=== PATIENT | female | born 1935 | race Caucasian/White ===

== ENCOUNTER 2019-02-26 11:23 | Inpatient (IN) ==
[2019-02-26] MEDS ORDERED: NS 1,000 ML IV ONE ×2 (12:12→15:47)
[2019-02-26] MEDS ORDERED: ZOFRAN IV ONE (12:12)
--- NOTE | 2019-02-26 12:33 | Diag Imaging Result Doc PS360 ---
EXAM: CHEST-1 VIEW HISTORY: cough TECHNIQUE: Chest single view COMPARISON: CT from 12/21/2017 FINDINGS: There is a mass in the mid right lung. This was described on the CT from 12/21/2017. No cardiomegaly. No pulmonary edema. No pleural effusions identified. No pneumonia. IMPRESSION: Right lung mass. Electronically signed by Pieter Suresh 02/26/2019 12:30 PM
[2019-02-26 13:16] LABS: HEMATOCRIT 39.5 % (37.0-47.0); HEMOGLOBIN 12.7 g/dL (12.0-16.0); IMM GRAN# 0.02 X1000 (0.0-0.04); IMM GRAN% 0.2 % (0.0-0.5); LYMPH# 0.88 X1000 (1.2-3.4); LYMPH% 9.1 % (20.5-51.1); MCH 27.4 PG (27-31); MCHC 32.2 g/dL (33-37); MCV 85.3 FL (81-99); MONO# 0.56 X1000 (0.11-0.59); MONO% 5.8 % (1.7-9.3); MPV 10.7 FL (7.4-10.4); NEUT# 8.25 X1000 (1.4-6.5); NEUT% 84.9 % (42.2-75.2); PLT 191 X1000 (130-400); RBC 4.63 XMIL (4.2-5.4); RDW 14.5 % (11.5-14.5); WBC 9.71 X1000 (4.8-10.8)
[2019-02-26 13:26] LABS: INR 0.93; PROTIME 13.2 Seconds (11.0-16.0); PTT 23.6 Seconds (22.3-41.8)
[2019-02-26 14:44] LABS: URINE SOURCE CATH
[2019-02-26 14:50] LABS: BILIRUBIN URINE NEGATIVE (NEGATIVE); BLOOD URINE SMALL (NEGATIVE); COLOR YELLOW; GLUCOSE URINE NEGATIVE (NEGATIVE); KETONE URINE TRACE mg/dL (NEGATIVE); LEUKOCYTES URINE TRACE (NEGATIVE); NITRITE URINE NEGATIVE (NEGATIVE); PH URINE 5.5; PROTEIN URINE 30 mg/dL (NEGATIVE); SP GRAVITY URINE 1.014; TURBIDITY URINE HAZY (CLEAR); UROBILINOGEN URINE NORMAL (NORMAL)
[2019-02-26 14:51] LABS: UR EPITHELIAL CELLS <10 /HPF (<10); URINE BACTERIA 4+ /HPF; URINE WBC <10 /HPF (<10)
[2019-02-26 14:59] LABS: ALB/GLOB RATIO 1.5; ALBUMIN 4.1 g/dL (3.5-5.0); CREATININE 1.6 mg/dL (0.5-0.9); POTASSIUM 3.1 mmol/L (3.5-5.1); TOTAL BILIRUBIN 0.5 mg/dL (0.20-1.00); TOTAL PROTEIN 6.8 g/dL (6.3-8.3)
--- NOTE | 2019-02-26 15:32 | PROVIDER DOCUMENTATION ---
This chart was entered by Kasia Garrett Scribe, acting as scribe for Ad Calderon MD. HPI-Abdominal Pain/GI Problem - General Chief Complaint: GI Bleed Stated Complaint: GI bleed Time Seen by Provider: 02/26/19 11:50 Source: patient Allergies/Adverse Reactions: Patient Allergies Allergy/AdvReac Type Severity Reaction Status Date / Time tuberculin,PPD,multi-puncture AdvReac Unknown Verified 02/26/19 12:20 Home Medications: Home Medication List Medication Instructions Recorded Confirmed Last Taken Type ATORVAstatin [Lipitor] 20 mg PO DAILY 10/24/14 09/21/15 09/21/15 20:00 History Clopidogrel Bisulfate [Plavix] 75 mg PO DAILY 10/24/14 09/21/15 09/21/15 08:30 History LISINOpril [Prinivil] 40 mg PO DAILY 10/24/14 09/21/15 09/21/15 History Levothyroxine [Synthroid] 150 mcg PO DAILY 10/24/14 09/21/15 09/21/15 06:00 History Metoprolol Succinate 50 mg PO BID 10/24/14 09/21/15 09/21/15 History Nitroglycerin Sl [Nitroglycerin] 0.4 mg SL PRN PRN 10/27/14 09/21/15 Unknown History Famotidine [Pepcid] 20 mg PO BID 03/09/15 09/21/15 09/21/15 20:00 History Hydrocodone/APAP 5 mg/325 mg 1 each PO DIRECTED #30 tablet 05/19/15 09/21/15 Unknown Rx [[place]-5] Magnesium Hydroxide [Milk of 30 ml PO DIRECTED 09/21/15 09/21/15 09/18/15 20:30 History Magnesia] Polyethylene Glycol 3350 [Miralax] 17 gm PO DIRECTED 09/21/15 09/21/15 09/19/15 08:30 History Temazepam [Restoril] 15 mg PO QHS 09/21/15 09/21/15 09/21/15 20:30 History - History of Present Illness-ABD Nature of Presenting Problems: Patient is a 83 year old female who presents to the ED via EMS with generalized abdominal pain, nausea and vomiting. Patient states symptoms have been present for 8 days. Report having blood streaked emesis this morning. Denies blood in stool. Abdominal Pain Onset Location: reports: generalized abdomen Pain Radiation: reports: no radiation Quality of Pain: reports: cramping Severity in ED: reports: mild Onset/Duration: reports: other (8 days ago) Timing: reports: still present Activities at Onset: reports: light activity Associated Symptoms: reports: nausea, vomiting Emesis Description: reports: blood-streaked Bruising or Bleeding Gums?: No Similar Symptoms Previously?: Yes Recently seen or treated by another doctor?: No Review of Systems - Adult - REVIEW OF SYSTEMS - ADULT Constitutional: reports: no symptoms reported. denies: chills, fever, fatique Eyes: reports: no symptoms reported Ears, Nose, Mouth & Throat: reports: no symptoms reported Cardiovascular: reports: no symptoms reported Respiratory: reports: see HPI, cough. denies: shortness of breath, wheezing Gastrointestinal: reports: see HPI, abdominal pain (generalized), hematemesis (blood - streaked), nausea, vomiting. denies: diarrhea Genitourinary: reports: no symptoms reported Musculoskeletal: reports: no symptoms reported Integumentary: reports: no symptoms reported Neurological: reports: no symptoms reported. denies: dizziness/vertigo, seizure, syncope Psychiatric: reports: no symptoms reported Endocrine: reports: no symptoms reported Hematologic/Lymphatic: reports: no symptoms reported Allergic/Immunologic: reports: no symptoms reported All Other Systems: Reviewed and Negative Past History - Adult - PAST MEDICAL HISTORY-ADULT Review of Records: reports: Old Records Reviewed, Nursing Assessment Review, Medications Reviewed, Social history reviewed & non-contributory. Major Childhood Illnesses: reports: denies history Cardiovascular: reports: aortic disease (aneurysm--repaired), CAD, HTN, hyperlipidemia Respiratory: reports: COPD Gastrointestinal: reports: GERD Obstetrical/Gynecological: reports: denies history Genitourinary: reports: denies history Musculoskeletal: reports: denies history Neurological: reports: TIA Endocrine/Immune: reports: thyroid disorder Other Conditions: reports: cataract/glaucoma - PRIOR SURGERIES/PROCEDURES Surgical/Procedure History: reports: appendectomy, hysterectomy, joint replacement, other (aortic aneurysm repair, tumor removed from breast, cataract removal) - IMMUNIZATION STATUS Childhood Immunizations: See Nurse Assessment Flu Vaccine: See Nurse Assessment - FAMILY HISTORY Family History: reviewed, not pertinent - SOCIAL HISTORY Smoking: cigarettes (former) Substance Use: denies Living Situation: care facility (SNF) Physical Exam-General - PHYSICAL EXAM-ADULT Initial Vital Signs Reviewed: Yes - CONSTITUTIONAL General Appearance: alert, no apparent distress. negative: lethargic, slow to respond - HEAD, EARS, NOSE, MOUTH & THROAT HENMT: normocephalic/atraumatic, moist mucous membranes. negative: angioedema, hearing deficit - RESPIRATORY Respiratory: chest non-tender, lungs clear, normal breath sounds. negative: crackles, rhonchi, wheezing - CARDIOVASCULAR Cardiovascular: normal peripheral pulses, regular rate, rhythm. negative: tachycardia, systolic murmur - GASTROINTESTINAL (ABDOMEN) Abdominal Exam: normal bowel sounds, non tender, soft. negative: guarding, r ebound - GENITOURINARY Rectal Exam: normal exam. negative: blood streaked stool, mass, tenderness - MUSCULOSKELETAL Extremity: non-tender, normal inspection. negative: deformity, erythema - SKIN Integumentary: normal color, normal turgor, warm/dry. negative: cyanosis, ecchymosis, erythema, jaundice - NEUROLOGIC Neurologic: grossly normal. negative: aphasia, facial droop - PSYCHIATRIC Psych/Mental Status: normal mood/affect, oriented x 3. negative: anxious Progress - PLAN OF CARE/RESULTS Progress/Plan/Lab Results: Vital Signs - 8 hr 02/26/19 11:40 Temperature 99.0 F Pulse Rate 113 H Respiratory Rate 18 Blood Pressure 148/83 O2 Sat by Pulse Oximetry 92 L Orders Category Date Time Status CBC WITH ELECTRONIC DIFF [HEME] Stat Lab 02/26/19 11:50 Uncollected COMPREHENSIVE METABOLIC PANEL [CHEM] Stat Lab 02/26/19 11:50 Uncollected OCCULT BLOOD SCREENING [STOOL] Stat Lab 02/26/19 11:51 Uncollected PT [PROTIME WITH INR] [COAG] Stat Lab 02/26/19 11:50 Uncollected PTT [COAG] Stat Lab 02/26/19 11:50 Uncollected URINALYSIS [URINALYSIS] Stat Lab 02/26/19 11:50 Uncollected Result Diagrams: 02/26/19 13:00 02/26/19 14:22 - XRAY 1 XRAY Study: Chest Impression: See EMR Report ( EXAM: CHEST-1 VIEW HISTORY: cough TECHNIQUE: Chest single view COMPARISON: CT from 12/21/2017 FINDINGS: There is a mass in the mid right lung. This was described on the CT from 12/21/2017. No cardiomegaly. No pulmonary edema. No pleural effusions identified. No pneumonia. IMPRESSION: Right lung mass. Electronically signed by Pieter Suresh 02/26/2019 12:30 PM 02/26/19 1230 Interpreting Physician: Pieter Suresh MD Dictated Date/Time: 02/26/19 1229 cc: Ad Calderon MD; Dean Lozada MD) - CONSULTS/PCP/HOSPITALIST Notification #1 *Consult/PCP/Hospitalist*: EDI Miller for Hospitalist Time Discussed: 15:21 Reason/Comments: Dr. Calderon consulted with Angela about patient. Consult Disposition: other (Summer states patient is a Dr. Lozada patient.) #2 Consult: Dr. Lozada Time Discussed: 15:27 Reason/Comments: Dr. Calderon consulted with Dr. Lozada about patient. Consult Disposition: Admit Departure - Departure Date of Disposition Decision: 02/26/19 Time of Disposition Decision: 15:27 DIAGNOSIS: GI bleed, Hypercalcemia, Hypokalemia, Vomiting Disposition: ADMITTED INPATIENT 09 Certified Medical Emergency: Emergent Condition: Stable - Critical Care Note This patient required my direct & personal management of CC.: No Attestation - Physician/ LUCY Attestation Patient care was provided by Advanced Practice Provider:: No The physician spent face to face time with patient:: Yes Advanced Practice Provider documentation review:: Supervising physician onsite and consulted in the evaluation and care of this patient. The physician did have a face to face encounter with the patient. This chart was documented by the indicated scribe, (Kasia Garrett Scribe) and accurately reflects the services I performed and decisions made by me, Ad Calderon MD, as attested by the provider's signature.
[2019-02-26] MEDS ORDERED: ZOFRAN IV PRN (15:47)
[2019-02-26] MEDS ORDERED: PROTONIX IV SCH (16:00)
[2019-02-26] MEDS ORDERED: VANCOMYCIN IV PER PHARMACY MISC SCH (17:30)
[2019-02-26] MEDS ORDERED: SODIUM CHLORIDE 0.9% INJ SCH (17:30)
[2019-02-26] MEDS ORDERED: NITROGLYCERIN SL PRN (17:33)
[2019-02-26] MEDS ORDERED: DULCOLAX PR ONE (17:35)
[2019-02-26] MEDS ORDERED: MIRALAX PO PRN (17:45)
[2019-02-26] MEDS ORDERED: MILK OF MAGNESIA PO PRN (17:45)
[2019-02-26] MEDS ORDERED: VANCOMYCIN 1 GM/NS 1 GM/250 ML IVPB IV ONE (18:00)
[2019-02-26] MEDS: LEVAQUIN 500 MG/D5W 500 MG/100 ML IVPB IV SCH (18:18)
[2019-02-26] MEDS: SOLU-MEDROL IV SCH (18:18)
--- NOTE | 2019-02-26 20:27 | Diag Imaging Result Doc PS360 ---
ABDOMEN FLAT/UPRIGHT - 02/26/2019 INDICATION: pain COMPARISON: None FINDINGS: There are stents the aortic bifurcation. There is moderate diffuse constipation. No bowel obstruction or free air. There is a left femoral head prosthesis. There is a stabilization jhon in the right femoral neck. IMPRESSION: Diffuse constipation. Electronically signed by Carlos Light 02/26/2019 8:25 PM
[2019-02-26] MEDS: RESTORIL PO SCH (21:05)
[2019-02-26] MEDS: TOPROL XL PO SCH (21:06)
[2019-02-26] MEDS: SODIUM CHLORIDE 0.9% INJ SCH (22:32)
[2019-02-26] MEDS: PROTONIX IV SCH (22:32)
[2019-02-26] MEDS: DUONEB (A & A) INH SCH (22:39)
[2019-02-27] MEDS: SOLU-MEDROL IV SCH ×4 (02:55→18:40)
[2019-02-27] MEDS: DUONEB (A & A) INH SCH ×4 (03:16→23:06)
[2019-02-27] MEDS: SYNTHROID PO SCH (06:13)
[2019-02-27] MEDS: PROTONIX IV SCH ×2 (06:35→18:40)
[2019-02-27 06:51] LABS: HEMATOCRIT 36.5 % (37.0-47.0); HEMOGLOBIN 11.5 g/dL (12.0-16.0); LYMPH# 0.52 X1000 (1.2-3.4); LYMPH% 6.9 % (20.5-51.1); MCH 27.5 PG (27-31); MCHC 31.5 g/dL (33-37); MCV 87.3 FL (81-99); MONO# 0.19 X1000 (0.11-0.59); MONO% 2.5 % (1.7-9.3); MPV 10.4 FL (7.4-10.4); NEUT% 90.6 % (42.2-75.2); PLT 162 X1000 (130-400); RBC 4.18 XMIL (4.2-5.4); RDW 14.4 % (11.5-14.5); WBC 7.51 X1000 (4.8-10.8)
[2019-02-27 07:16] LABS: ALB/GLOB RATIO 1.3; ALBUMIN 3.7 g/dL (3.5-5.0); CREATININE 1.5 mg/dL (0.5-0.9); TOTAL BILIRUBIN 0.52 mg/dL (0.20-1.00); TOTAL PROTEIN 6.5 g/dL (6.3-8.3)
[2019-02-27 07:17] LABS: LYMPHS 8 % (21-51); MONO 1 % (1-9); SEGS 91 % (42-75)
--- NOTE | 2019-02-27 07:50 | Diag Imaging Result Doc PS360 ---
CT HEAD W/O CONTRAST - 02/27/2019 INDICATION: headache COMPARISON: 09/21/2015 FINDINGS: There is moderate patient motion artifact. There is advanced diffuse cerebral atrophy. There is advanced periventricular white matter chronic microvascular disease. No significant change since prior. The skull is intact. There is an air-fluid level in the left maxillary sinus compatible with sinusitis. IMPRESSION: 1. Left maxillary sinusitis. 2. Stable chronic changes to the brain. This exam was performed using automated exposure control, adjustment of mA or kV according to patient size, and/or use of iterative reconstruction technique Electronically signed by Carlos Light 02/27/2019 7:47 AM
--- NOTE | 2019-02-27 07:53 | Diag Imaging Result Doc PS360 ---
CT ABDOMEN/PELVIS W/O CONTRAST - 02/27/2019 INDICATION: lung mass COMPARISON: 12/21/2017, 05/15/2015 FINDINGS: Lung mass is not visible on this abdomen pelvis CT. The visualized lung bases demonstrate advanced COPD. There is also mucus plugging of segmental airways in the lung bases, scattered infiltrates in both lower lobes, and bilateral dependent atelectasis. There has been significant decrease in size of the abdominal aortic aneurysm sac. This measures 4.2 x 4.8 cm in AP and lateral dimensions. Stable internal stent. There is significant rectal stool impaction. Urinary bladder is normal. There is significant diverticulosis throughout the colon. Stable left femoral head prosthesis and right femoral neck stabilization jhon. There are moderate degenerative changes of the spine. No acute or suspicious bony lesion. IMPRESSION: Constipation with rectal stool impaction. Mucous plugging with scattered infiltrates/bronchopneumonia in the lower lobes. Severe COPD. This exam was performed using automated exposure control, adjustment of mA or kV according to patient size, and/or use of iterative reconstruction technique Electronically signed by Carlos Light 02/27/2019 7:51 AM
[2019-02-27 07:55] LABS: CALCIUM 12.8 mg/dL (8.8-10.2)
[2019-02-27] MEDS: D5 NS + KCL 20 MEQ 1,000 ML IV SCH ×3 (08:25→21:28)
[2019-02-27] MEDS: TOPROL XL PO SCH ×2 (08:25→21:02)
[2019-02-27] MEDS: PRINIVIL PO SCH (08:26)
[2019-02-27] MEDS ORDERED: GLYCERIN ADULT PR ONE (12:15)
[2019-02-27] MEDS ORDERED: ZOMETA 4 MG in NS 100 ML IV ONE (12:15)
[2019-02-27] MEDS ORDERED: GOLYTELY PO ONE (13:00)
--- NOTE | 2019-02-27 14:39 | Diag Imaging Result Doc PS360 ---
CT THORAX W/O CONTRAST - 02/27/2019 INDICATION: Eval lung mass COMPARISON: 12/21/2017 FINDINGS: There has been significant increase in size of the suspicious right upper lobe pulmonary mass. This is at the posterior surface contacting the posterior pleura. There is severe right hilar, paratracheal, and anterior mediastinal lymphadenopathy. There is clustered nodularity at the anterior segment of the right upper lobe, likely tumor spread here as well. Small indeterminate effusion and slight atelectasis in the left lung base. There is dense vascular disease of the aorta, great vessels, and coronary arteries. Heart size is borderline. Bony structures are intact. IMPRESSION: Advanced primary lung cancer. This exam was performed using automated exposure control, adjustment of mA or kV according to patient size, and/or use of iterative reconstruction technique Electronically signed by Carlos Light 02/27/2019 2:37 PM
[2019-02-27] MEDS: LEVAQUIN 500 MG/D5W 500 MG/100 ML IVPB IV SCH (17:50)
[2019-02-27] MEDS ORDERED: KLOR-CON PO ONE (17:53)
[2019-02-27] MEDS: SODIUM CHLORIDE 0.9% INJ SCH (18:40)
--- NOTE | 2019-02-27 20:12 | HISTORY AND PHYSICAL ---
CHIEF COMPLAINT: Hematemesis. HISTORY OF PRESENT ILLNESS: Ms. Lucio is an 83-year-old white female patient, not doing well last 10 days. Patient claims she was sick with chest congestion, cough, expectoration, sinus drainage, feverish feeling, weakness. Patient had episode of hemoptysis one time 2 days ago. Patient was getting treatment for pneumonia at the [facility]. Patient claims she was not getting any better. Patient had 3 episodes of coffee-ground emesis. They checked for Hemoccult and it was positive. Her oral intake was poor. Patient had unquantified weight loss. Patient was also constipated. Because of her overall health declining, poor oral intake, she was not responding to outpatient treatment, we decided to send patient to ER for further evaluation. Patient does have multiple complex medical issues, including hypertension, hypothyroidism, coronary artery disease, paroxysmal atrial fibrillation, history of subdural hematoma, a lung mass presumed to be a malignancy but no tissue diagnosis done at patient's request. Patient also has a history of dysphagia. Lately her overall health is declining. Patient does have vague chest pain at times, palpitation, vague abdominal pain, at times dysuria, polyuria, urge urinary incontinence. According to son, patient did not bowel movement over 7-10 days. No bleeding per rectum. At times, pain in the leg. No heat or cold intolerance. At times, symptoms suggestive of rhinitis. Patient does have problem with recent memory. No further history available at this time. ALLERGIES: Tuberculin PPD. PAST MEDICAL HISTORY: Hypertension, hyperlipidemia, hypothyroidism, COPD, lung mass, peripheral arterial disease, macular degeneration (patient has poor vision, left eye, under care of certified low vision therapist), gastritis and reflux disease (I offered her GI evaluation multiple times, but patient is declining), history of subdural hematoma, aortic aneurysm status post repair, basal cell skin cancer. PAST SURGICAL HISTORY: Patient had cataract surgery, appendectomy, hysterectomy, bilateral total hip replacement, lumpectomy from the left breast and it was benign. SOCIAL HISTORY: Single. Former smoker. She smoked for more than 50 years, quit around 20 years ago. Denied alcohol or substance abuse. Patient lately staying in the [facility], needs assistance in activities of daily living. FAMILY HISTORY: Significant for coronary artery disease. One of her sons has Parkinson disease. REVIEW OF SYSTEMS: As per HPI. Otherwise unobtainable. HOME MEDICATION: Includes lisinopril, Lipitor, Plavix, Pepcid, [place], Synthroid, milk of magnesia, beta marlene, nitroglycerine sublingually, MiraLAX, Restoril. PHYSICAL EXAMINATION: GENERAL: Elderly white female patient in mild distress. VITAL SIGNS: In the emergency room, blood pressure 147/82, pulse 76, respirations 16, temperature 98.3. SKIN: Senile turgor. NECK: Supple. No JVD, thyromegaly, or lymphadenopathy. HEENT: Head: Atraumatic, normocephalic. Pupils reacting to light. Ear and Nose: Benign. No pharyngeal congestion. LUNGS: Bibasilar crepitation. Occasional wheezing. CARDIOVASCULAR: S1 and S2 heard. No gallop or thrill. A 2/6 systolic murmur at the apex. ABDOMEN: Soft, scaphoid. Bowel sounds present. Mild epigastric tenderness. EXTREMITIES: No cyanosis, clubbing. Some disuse atrophy of the lower limbs. CENTRAL NERVOUS SYSTEM: Alert, awake. Answering questions fair. Patient does have problem with recent memory. DIAGNOSTIC STUDIES: Her admission lab data revealed WBC count of 9.71, hemoglobin 12.7, hematocrit 39.5, platelet count 191. PT/INR 0.93, PTT 23.6. Potassium 3.1, calcium was 14. I did check her intake PTH which was low. Urine analysis did reveal 4+ bacteria, 10-20 RBCs, less than 10 WBCs. Chest x-ray revealed right lung mass. Abdominal x-ray revealed constipation. ASSESSMENT AND PLAN: Patient presented with: 1. Coffee-ground emesis, most likely due to upper gastrointestinal bleed. Patient had problem with dysphagia at times, weight loss. We recommended her to have upper and lower gastrointestinal endoscopies many months ago, but patient was declining. I will admit patient. Hydration. Gastroenterology consult. IV Protonix. Patient and son in agreement. 2. Chronic obstructive pulmonary disease exacerbation. Patient does have chronic cough, chest congestion not responding to outpatient treatment. 3. Lung mass. Aware. Patient does not want any intervention. I had lengthy discussions with patient and son multiple times in the past. Patient wanted only comfort care. 4. Hypercalcemia. I checked intake PTH which was normal , It is more suggestive of possibility of hypercalcemia of malignancy. I am going to get an oncologic consult for further management. I will have limitation giving her hydration and Lasix. 5. Hypertension. 6. Hypothyroidism. On Synthroid. 7. Weight loss. Overall plan discussed with the patient at length, and she is in agreement. Her son was present. cc: Dean Lozada MD MTDD
[2019-02-27] MEDS: RESTORIL PO SCH (21:02)
[2019-02-28] MEDS: SOLU-MEDROL IV SCH ×3 (02:25→17:54)
[2019-02-28] MEDS: DUONEB (A & A) INH SCH ×4 (03:27→21:37)
[2019-02-28] MEDS ORDERED: LASIX IV ONE (06:35)
[2019-02-28 06:58] LABS: AGAP 8; ALB/GLOB RATIO 1.3; ALBUMIN 3.4 g/dL (3.5-5.0); ALKALINE PHOSPHATASE 42 U/L (32-104); BUN 40 mg/dL (8-22); CHLORIDE 109 mmol/L (98-107); COSMO 303; CREATININE 1.2 mg/dL (0.5-0.9); ESTIMATED GFR 43; GLUCOSE 140 mg/dL (70-104); GOT 12 U/L (10-30); GPT < 5 U/L (10-36); SODIUM 146 mmol/L (136-145); TCO2 29 mmol/L (25-35); TOTAL BILIRUBIN 0.53 mg/dL (0.20-1.00); TOTAL PROTEIN 6.1 g/dL (6.3-8.3)
[2019-02-28 07:26] LABS: POTASSIUM 2.5 mmol/L (3.5-5.1)
[2019-02-28] MEDS: D5 NS + KCL 20 MEQ 1,000 ML IV SCH ×2 (07:26→09:05)
[2019-02-28] MEDS: PROTONIX IV SCH ×2 (07:27→17:54)
--- NOTE | 2019-02-28 07:29 | Diag Imaging Result Doc PS360 ---
CHEST-PORTABLE - 02/28/2019 INDICATION: sob COMPARISON: 02/26/2019 FINDINGS: Stable right upper lobe lung mass and right hilar adenopathy. No new infiltrates. IMPRESSION: No change from prior. Electronically signed by Carlos Light 02/28/2019 7:27 AM
[2019-02-28] MEDS: SYNTHROID PO SCH (07:30)
[2019-02-28] MEDS ORDERED: KLOR-CON PO ONE ×2 (07:47→20:15)
[2019-02-28] MEDS: KLOR-CON PO SCH ×2 (08:59→11:56)
[2019-02-28] MEDS: PRINIVIL PO SCH (09:00)
[2019-02-28] MEDS: TOPROL XL PO SCH ×2 (09:00→20:31)
[2019-02-28] MEDS: LACTULOSE PO SCH (09:05)
[2019-02-28] MEDS: POTASSIUM CHLORIDE 20 MEQ/SWI 20 MEQ/100 ML IVPB IV SCH ×2 (09:05→11:56)
[2019-02-28] MEDS ORDERED: VANCOMYCIN 1 GM/NS 1 GM/250 ML IVPB IV SCH (10:00)
--- NOTE | 2019-02-28 13:23 | PROGRESS NOTE ---
DATE: 02/28/2019 SUBJECTIVE: Ms. Lucio is doing fair and complaining of cough. No hemoptysis. No high-grade fever or chills. Oral intake is fair. No hematemesis or melena. The patient claims to have one bowel movement. She refused to drink GoLYTELY. Her pain seems to be under control. No typical chest pain. Patient admitted with possible upper GI bleed. PAST MEDICAL HISTORY: As noted. OBJECTIVE: Vital signs: Reviewed. Neck: Supple. No JVD. Lungs: Bibasilar crepitations and occasional wheezing. CVS: S1 and S2 heard. 2/6 systolic murmur at the apex. Abdomen: Soft. No distention. Bowel sounds present. Extremities: No cyanosis or clubbing. No acute DVT. DIPLOMA MAKER: Alert, awake and able to move all 4 limbs. CONSIDERATION: Patient's problems includes upper GI bleed that could be due to gastritis. Hemoglobin yesterday was 11.5, hematocrit 36.5, and WBC count 7.51. Clinical Data Assistant following patient with us. The patient does have hypercalcemia. Intact PTH normal, most likely related to malignancy. The patient did receive 1 dose of Zometa. I also gave her IV hydration and 1 dose of IV Lasix. The patient does have lung mass with possible metastasis. The patient does not want any intervention as far as lung mass is concerned. The patient also had a thyroid nodule. She refused workup in the past. Other problems includes pneumonia, osteoarthritis, constipation, gastritis and reflux disease. COPD. Overall plan discussed with the patient, and she is in agreement. cc: Dean Lozada MD
--- NOTE | 2019-02-28 14:44 | Diag Imaging Result Doc PS360 ---
BONE SCAN, TOTAL BODY - 02/27/2019 INDICATION: Hypercalcemia, eval TECHNIQUE: 29.6 mCi of MDP was administered COMPARISON: None FINDINGS: There are no suspicious areas of uptake throughout the skeleton. There are bilateral prosthetic hips. Soft tissue uptake is normal. IMPRESSION: No acute disease. Electronically signed by Carlos Light 02/28/2019 2:42 PM
[2019-02-28] MEDS: SODIUM CHLORIDE 0.9% INJ SCH (17:54)
[2019-02-28] MEDS: LEVAQUIN 500 MG/D5W 500 MG/100 ML IVPB IV SCH (17:54)
[2019-02-28] MEDS: RESTORIL PO SCH (20:31)
[2019-03-01] MEDS: SOLU-MEDROL IV SCH ×2 (02:24→16:09)
[2019-03-01] MEDS: DUONEB (A & A) INH SCH ×4 (03:00→21:58)
[2019-03-01] MEDS: PROTONIX IV SCH ×2 (07:00→18:49)
[2019-03-01 07:43] LABS: HEMATOCRIT 34.1 % (37.0-47.0); HEMOGLOBIN 10.7 g/dL (12.0-16.0); IMM GRAN# 0.04 X1000 (0.0-0.04); IMM GRAN% 0.4 % (0.0-0.5); LYMPH# 0.61 X1000 (1.2-3.4); LYMPH% 5.8 % (20.5-51.1); MCH 27.4 PG (27-31); MCHC 31.4 g/dL (33-37); MCV 87.4 FL (81-99); MONO# 0.44 X1000 (0.11-0.59); MONO% 4.2 % (1.7-9.3); MPV 10.9 FL (7.4-10.4); NEUT# 9.34 X1000 (1.4-6.5); NEUT% 89.6 % (42.2-75.2); PLT 145 X1000 (130-400); RDW 14.6 % (11.5-14.5); WBC 10.43 X1000 (4.8-10.8)
[2019-03-01 07:48] LABS: AGAP 9; ALB/GLOB RATIO 1.1; ALBUMIN 3.3 g/dL (3.5-5.0); ALKALINE PHOSPHATASE 45 U/L (32-104); BUN 41 mg/dL (8-22); CALCIUM 11.4 mg/dL (8.8-10.2); CHLORIDE 108 mmol/L (98-107); COSMO 302; CREATININE 1.4 mg/dL (0.5-0.9); ESTIMATED GFR 36; GLUCOSE 129 mg/dL (70-104); GOT 10 U/L (10-30); GPT < 5 U/L (10-36); MAGNESIUM 1.6 mg/dL (1.5-2.7); SODIUM 146 mmol/L (136-145); TCO2 29 mmol/L (25-35); TOTAL BILIRUBIN 0.27 mg/dL (0.20-1.00); TOTAL PROTEIN 6.2 g/dL (6.3-8.3)
[2019-03-01] MEDS: LACTULOSE PO SCH (08:47)
[2019-03-01] MEDS: TOPROL XL PO SCH ×2 (08:48→20:50)
--- NOTE | 2019-03-01 08:49 | PROGRESS NOTE ---
DATE: 03/01/2019 SUBJECTIVE: Ms. Lucio is doing fair. No high-grade fever or chills. Denied any chest pain or palpitation. Mild generalized pain. Nausea and vomiting improved. Her pain seems to be under control. We had problem with her potassium yesterday; I supplemented potassium. History part is limited. OBJECTIVE: Vital Signs: Noted. Neck: Supple. No JVD. Lungs: Bilateral good air entry present. Few basal crepitations. Cardiovascular: S1 and S2 heard. Abdomen: Soft, scaphoid. Bowel sounds present. Mild diffuse tenderness. No guarding or rigidity. Extremities: No cyanosis, clubbing. No acute DVT. CRISIS COUNSELOR: Alert, awake. Able to move all 4 limbs. Bone scan result reviewed. We did serum protein electrophoresis, it was negative for monoclonal band. IMPRESSION: 1. The patient's problems includes GI bleed. Last hemoglobin was 11.5 I am going to recheck her Hemoglobin and Hematocrit today. Computer Science Instructor following patient with us. 2. Significant constipation, hypercalcemia most likely due to malignancy. Oncologist following patient with us. Lung mass presumed to be malignancy. 3. Paroxysmal atrial fibrillation. 4. Osteoarthritis. PLAN: Overall patient is doing fair. Her chest x-ray done yesterday reviewed. I am going to continue current treatment, decrease her steroid. If clinical condition permits, we will plan discharging patient [facility] tomorrow. cc: Dean Lozada MD
[2019-03-01] MEDS: LOVENOX SUBQ SCH (08:50)
[2019-03-01] MEDS: SYNTHROID PO SCH (08:50)
[2019-03-01] MEDS: PRINIVIL PO SCH (08:52)
[2019-03-01] MEDS ORDERED: KLOR-CON PO SCH (09:00)
--- NOTE | 2019-03-01 10:56 | PROGRESS NOTE ---
DATE: 02/27/2019 SUBJECTIVE: Ms. Lucio is feeling some better. She does have cough. No nausea or vomiting. No high-grade fever or chills. Denied any chest pain or palpitation. The patient does have constipation. Patient admitted with symptoms suggestive of acute bronchitis, COPD exacerbation, not responding to outpatient treatment. The patient also found to have hypercalcemia, COPD exacerbation, upper GI bleed, weight loss, constipation. OBJECTIVE: Vital Signs: Her vital signs noted. HEENT: No pharyngeal congestion. Ears and nose benign. Patient had significant visual impairment, left eye. Neck: Supple. Possible thyroid enlargement. Lungs: Bibasilar crepitations, occasional wheezing. CVS: S1 and S2 heard. Abdomen: Soft, globular. Mild epigastric tenderness. No guarding or rigidity. Extremities: No cyanosis, clubbing. No acute DVT. RFID TECHNICIAN: Alert, awake. Able to move all 4 limbs. CONSIDERATION: 1. Upper gastrointestinal bleed. Gristmill Operator is going to evaluate the patient. 2. Acute bronchitis, chronic obstructive pulmonary disease exacerbation not responding to outpatient treatment. The patient is on steroid, bronchodilator treatment, intravenous antibiotics. 3. Hypothyroidism. Patient had abnormal thyroid nodule. I offered her workup in the past, but patient declined. 4. History of coronary artery disease, paroxysmal atrial fibrillation. 5. Chronic pain due to osteoarthritis. 6. Gastritis and reflux disease. I am going to get CT scan of the chest, abdomen, pelvis and the head for further evaluation. We will continue hydration. Gastroenterology consult. After reviewing the results, will make necessary recommendations. cc: Dean Lozada MD
[2019-03-01] MEDS: MORPHINE IV PRN (12:19)
[2019-03-01] MEDS: LEVAQUIN 500 MG/D5W 500 MG/100 ML IVPB IV SCH (18:49)
[2019-03-01] MEDS: SODIUM CHLORIDE 0.9% INJ SCH (18:49)
[2019-03-01] MEDS: RESTORIL PO SCH (20:50)
[2019-03-02] MEDS: SOLU-MEDROL IV SCH (01:21)
[2019-03-02] MEDS: DUONEB (A & A) INH SCH ×2 (03:39→11:24)
[2019-03-02] MEDS: PROTONIX IV SCH (06:08)
[2019-03-02] MEDS: SYNTHROID PO SCH (06:09)
[2019-03-02] MEDS: LOVENOX SUBQ SCH (06:09)
--- NOTE | 2019-03-02 07:44 | GASTROENTEROLOGY CONSULTATION ---
DATE: 02/27/2019 REASON FOR CONSULTATION: Abdominal pain, nausea, vomiting, questionable hematemesis. HISTORY OF PRESENT ILLNESS: This is an 83-year-old female who was admitted on 02/26/2019. Patient has been residing at [facility]. She reports abdominal pain, nausea and vomiting. She has had problems for approximately seven to eight days. There were reports of possible hematemesis but no evidence of blood in the stool. There was no reported diarrhea but patient states she does have problems with constipation. She states at [facility] they give her laxatives only when needed. Abdominal and pelvis CT scan had showed constipation with rectal stool impaction. Also noted mucosal plugging with scattered infiltrates in the lower lobes with severe COPD. Abdominal x-ray showed diffuse constipation. She has stents at the aortic bifurcation. Moderate diffuse constipation with no bowel obstruction. PAST MEDICAL HISTORY: Coronary artery disease, hypertension, hyperlipidemia, history of aortic disease with aneurysm repair, COPD, GERD, history of glaucoma/cataracts, hypothyroidism, history of TIA. PAST SURGICAL HISTORY: Appendectomy, hysterectomy, joint replacement, aortic aneurysm repair, tumor from breast removed, cataract surgery. ALLERGIES: Tuberculin PPD, unknown reaction. HOME MEDICATIONS: Lipitor 20 mg daily, Plavix 75 mg daily, Pepcid 20 mg twice a day, Isabella 5 one as directed, Synthroid 150 mg daily, Prinivil 40 mg daily, Milk of Magnesia as directed or as needed, metoprolol 50 mg twice a day, nitroglycerin 0.4 mg sublingual as needed, MiraLAX 17 grams as needed, temazepam 15 mg every night. SOCIAL HISTORY: She resides at [facility]. Former smoker. Denies alcohol use. REVIEW OF SYSTEMS: Per history of present illness. PHYSICAL EXAMINATION: Vital Signs: Temperature 97.9, pulse 81, respirations 15, blood pressure 199/92. General: The patient was wake. She was being cleaned up at the time of my evaluation. She had a small amount of brown stool. Nurse was cleaning her up. No evidence of rectal bleeding or melena. Respiratory: Lung sounds essentially clear. Cardiovascular: Regular rate and rhythm. Abdomen: Soft. Positive bowel sounds. Nontender. Extremities: No lower extremity edema noted. Neurologically, patient was awake and alert. DIAGNOSTIC RESULTS: Laboratory. WBC 17.51, hemoglobin 11.5, hematocrit 36.5, MCV 87.3, platelets 162. Coagulation. Pro-time 13.2, INR 0.93, PTT 23.6. Chemistry. Sodium 143, potassium 3.0, chloride 103, CO2 27, BUN 51, creatinine 1.5, glucose 104, calcium 12.8, magnesium 1.9, total bilirubin 0.52, AST 13, ALT 5, alkaline phosphatase 47. ASSESSMENT AND PLAN: 1. Questionable hematemesis. 2. CT scan showing stool impaction. Patient has had a Dulcolax. We will give a glycerin suppository and try 1 liter of GoLyte to clean her out and then start lactulose daily. Will continue to follow during her hospital course and further plans will be made according to her progress. Hemoglobin and hematocrit are stable. Will continue to monitor. Further plans will be made as needed. I have discussed this case with Dr. Chau. Dictated by EDI Trevino for Jas Chau MD cc: EDI Watson MD Bharat K. Vakharia, MD
[2019-03-02] MEDS: TOPROL XL PO SCH (08:37)
[2019-03-02] MEDS: LACTULOSE PO SCH (08:37)
[2019-03-02] MEDS: PRINIVIL PO SCH (08:37)
[2019-03-02] MEDS: MORPHINE IV PRN (08:44)
--- NOTE | 2019-03-02 09:19 | HEMO/ONC CONSULTATION ---
DATE: 02/27/2019 REQUESTING PHYSICIAN: Dr. Dean Lozada. REASON FOR CONSULTATION: Hypercalcemia. HISTORY OF PRESENT ILLNESS: Ms Lucio is a pleasant 83-year-old female with multiple comorbidities, who presented to [facility] yesterday with complaints of abdominal pain, nausea, vomiting, and hemoptysis. Per documentation and her son's report, who is at bedside, she had been complaining of abdominal pain, nausea and vomiting for at least 7 to 8 days. She had constipation with no bowel movement as well over the past week. She began having hemoptysis yesterday morning. She ultimately presented to the emergency room for further evaluation. Abdominal x-ray performed in the ER revealed diffuse constipation. CT of the abdomen and pelvis revealed constipation with impaction as well as scattered infiltrates/bronchopneumonia in the lower lobes. Additionally noted on admission, she had significant hypercalcemia with a calcium level of 14.0. She was admitted for further evaluation and workup. We have been asked to evaluate. Please note, patient is a poor historian. Past medical history is primarily obtained from ER documentation and the son who is at bedside. PAST MEDICAL HISTORY: 1. TIA. 2. Cataracts. 3. Glaucoma. 4. Thyroid disorder. 5. Hypertension. 6. Hyperlipidemia. 7. GERD. 8. Brain bleed. 9. CAD. 10. COPD. PAST SURGICAL HISTORY: 1. AAA repair. 2. Hysterectomy. 3. Femur fracture. 4. Cardiac surgery. 5. Appendectomy. 6. Joint replacement. 7. Tumor removal from breast. 8. Cataract removal. SOCIAL HISTORY: She currently resides in a rehab facility. She is accompanied today by a supportive son. She is a former smoker. Denies any alcohol or illicit drug use. FAMILY HISTORY: No known bleeding or clotting disorders, malignancies. ALLERGIES: No known drug allergies. REVIEW OF SYSTEMS: Twelve point review of systems reviewed and negative except as mentioned above in HPI. HOME MEDICATIONS: 1. Metoprolol succinate 50 mg p.o. b.i.d. 2. Lisinopril 40 mg p.o. daily. 3. Lipitor 20 mg p.o. daily. 4. Levothyroxine 150 mcg p.o. daily. 5. Clopidogrel [*] mg p.o. daily. 6. Nitroglycerin 0.4 mg sublingual p.r.n. 7. [*]20 mg p.o. b.i.d. 8. [place] 5 one tablet as needed. 9. Polyethylene glycol 17 g p.o. daily. 10. Milk of magnesia 30 mg p.o. as directed. 11. Temazepam 50 mg p.o. at bedtime. Note home medications have not yet been confirmed. PHYSICAL EXAMINATION: Vital Signs: Temperature 97.9 degrees, respirations 15, pulse 100, blood pressure 177/92, O2 saturation 97% on room air. General: This is a chronically ill-appearing female lying in bed, in no apparent distress. She is accompanied by her son. HEENT: Eyes, pupils equal, round. Mouth: Oral mucosa pink and dry. Neck: Supple. Trachea midline. Cardiovascular: Regular rate and rhythm. S1, S2. Pulmonary: Lung sounds clear throughout auscultation bilaterally, nonlabored. Gastrointestinal: Abdomen soft, nontender, nondistended. Bowel sounds are present in all 4 quadrants. Musculoskeletal: No bony abnormality. Skin: No petechia, ecchymosis, or rash. Thin and dry. Neurologic: The patient is awake and alert, minimally responsive when asked questions. She is having periods of confusion per her son. LABORATORY DATA: White blood cell count 7.51, hemoglobin 11.5, hematocrit 36.5, platelet 162,000. Sodium 142, potassium 3.0, chloride 103, CO2 27, BUN 51, creatinine 1.5, glucose 104, calcium 12.8. Noted calcium was 14.0 upon admission. PTH low at 12. IMAGIN. Chest x-ray from 02/26/2019. Impression: Right lung mass. 2. Abdominal x-ray 02/26/2019. Impression: Diffuse constipation. 3. Abdomen/pelvis CT 02/27/2018. Impression: Constipation with rectal stool impaction, mucous plugging with scattered infiltrate/bronchopneumonia in the lower lobes, severe COPD. 4. Head CT. Impression: Left maxillary sinusitis. Stable chronic changes of the brain. That was dated 02/27/2018. ASSESSMENT AND PLAN: 1. Right lung mass per chest x-ray 02/26/2019. Noted that this was there on CT dated 12/21/2017. We will obtain records for review. We will plan to repeat dedicated CT of the chest without contrast to further evaluate. 2. Hypercalcemia, questionable etiology, possibly from malignancy. Calcium level 14.0 upon admission, now down to 12.8. We will give Zometa 4 mg IV x1 dose. Check SPEP and whole-body bone scan. If the SPEP is positive, then we will plan to check dedicated skeletal survey to further evaluate. We will check CMP daily. 3. Constipation with impaction per CT abdomen and pelvis. Continue bowel regimen per primary care. 4. Abdominal pain/nausea, vomiting, likely secondary to constipation with impaction. This is resolved at present. Continue analgesics as well as antiemetics as needed. Supportive care. 5. Scattered infiltrates/bronchopneumonia in bilateral lower lobes. She is currently on broad- spectrum antibiotics per primary care. Continue present management. 6. Hemoptysis, possibly secondary to suspected pneumonia. The son reports that she did not have any overt hematemesis, it was rather hemoptysis. No further complaints. Hemoglobin is decreased but stable today at 11.5, likely dilutional as hemoglobin was 12.7 upon admission. Continue present management per primary care. The above findings represent the assessment and plan of Dr. Evan Cochran. Thank you for allowing us to participate in the care of this patient. We will follow closely. Dictated by EDI Ferreira for Evan Cochran MD cc: EDI Ferreira MD Bharat K. Vakharia, MD
--- NOTE | 2019-03-02 09:22 | DISCHARGE SUMMARY ---
ADMISSION DATE: 02/26/2019 DISCHARGE DATE: DISCHARGE DIAGNOSES: 1. Upper gastrointestinal bleed, most likely due to gastritis. 2. Enlarging lung mass, presumed to be malignancy. 3. Hypercalcemia, most likely due to malignancy. 4. Constipation. 5. Paroxysmal atrial fibrillation. 6. Chronic pain. 7. Osteoarthritis. 8. Chronic obstructive pulmonary disease. 9. Peripheral arterial disease. 10. Macular degeneration. 11. History of subdural hematoma. 12. Aortic aneurysm. 13. Basal cell skin cancer. 14. History of bilateral hip replacement. 15. History of breast biopsy in the past, which was benign. 16. Hypothyroidism. 17. Hyperlipidemia. HISTORY OF PRESENT ILLNESS: Ms. Lucio is an 83-year-old white female patient, admitted with coffee-ground emesis, which was Hemoccult-positive. The patient was evaluated in the ER. The patient also had vague abdominal pain, at times dysphagia. The patient was evaluated in the ER, admitted for further care. Her oral intake was poor. The patient had unquantified weight loss. GI consult obtained. I also did Oncology consult. The patient was treated conservatively with IV Protonix, IV fluids, symptomatic care, pain management. Oncologist recommended hospice. [facility] evaluated the patient. Dr. Chau evaluated the patient. They want to treat the patient conservatively, then to do the endoscopy. Her hypercalcemia was treated accordingly. Calcium level improved to 11.4. Renal function also improved. The patient is doing fairly well. I had multiple time discussion with the patient and son. The patient does have advanced lung mass. We decided to treat the patient conservatively. We thought the [facility] will [facility] at the [facility]. The patient did not want any aggressive intervention, and we decided to treat the patient at the [facility] with comfort care. OBJECTIVE: Vital Signs: Noted. Neck: Supple. No JVD. Lungs: A few basilar crepitations. Heart: S1 and S2 heard. Abdomen: Soft, scaphoid. Bowel sounds present. EVIDENCE SPECIALIST: Alert, awake. Able to move all 4 limbs. IMAGING AND LABORATORY DATA: The patient's lab data revealed hemoglobin 10.7, hematocrit 34.1, WBC count 10.43, platelets 145,000. Sodium 146, potassium 5, BUN 41, creatinine 1.4. Her calcium was 14, came down to 11.4. Serum protein electrophoresis was negative for multiple myeloma. Intact PTH level was 12. Urinalysis did reveal 4+ bacteria, suggestive of UTI. Urine culture not done. Stool for occult blood was negative. The patient had CT scan of the chest done, which did reveal advance primary lung cancer. Bone scan: No acute disease. CT of the abdomen and pelvis: Constipation with rectal stool impaction, mucous plugging, with scattered infiltrates, bronchopneumonia in the lower lobes, and severe COPD. Overall discharge condition satisfactory. I had a lengthy discussion with the son about poor prognosis. Son and patient in agreement. We are going to consider hospice down the road. Son wants her to have some physical therapy. I am going to continue prednisone in tapering dose, Augmentin, supportive care. Discharge orders as per separate sheet. cc: Dean Lozada MD
[2019-03-02 11:38] VITALS: BP 123/69
--- NOTE | 2019-03-02 20:03 | GASTROENTEROLOGY PROGRESS NOTE ---
DATE: 03/02/2019 SUBJECTIVE: Patient is awake and alert. She was receiving a breathing treatment. Her son is at the bedside. There has been no evidence of active bleeding. I think per son's report she may be discharged today. OBJECTIVE: Vital Signs: Temperature 98.1, pulse 99, respirations 20, blood pressure 123/69. General: Patient is awake. Her son is at the bedside. LABORATORY: Hematology: WBC 10.43, hemoglobin 10.7, hematocrit 34.1, MCV 87.4, platelet 145,000. Chemistry: Sodium 146, potassium 5.0, chloride 108, CO2 29, BUN 41, creatinine 1.4, glucose 129, calcium 11.4, magnesium 1.6, total bilirubin 0.27, AST 10, ALT 5, alkaline phosphatase 45. ASSESSMENT AND PLAN: 1. Recent gastrointestinal bleed. Hemoglobin and hematocrit have been stable and there is no evidence of active bleeding. 2. Constipation, impaction. Patient has received laxatives. 3. Lung mass, following with Oncology. 4. There has been no further evidence of active GI bleeding. Hemoglobin and hematocrit stable. 5. Will continue to follow during her hospital course and be available as needed. I have given her our contact information to follow up in the office if needed. I have discussed this case with Dr. Chau. Dictated by EDI Trevino for Jas Chau MD cc: EDI Watson MD Bharat K. Vakharia, MD MTDD
== END 2019-03-02 13:43 | DRG 377 ==
LOC: SUPCPDRO → ED 11:23 → 3N 16:16
PROVIDERS: ADMIT Internal Medicine; ATTEND Internal Medicine
CPT/HCPCS: 51701; 70450; 71010; 71045; 71250; 74019; 74020; 74176; 78306; 80053; 81001; 82270; 82378; 83735; 83880; 83970; 84132; 84155; 84165; 84439; 85025; 85610; 85730; 94640; 94761; 96361; 96374; 99285; A9270; A9503; C9113; J1650; J1940; J1956; J2270; J2405; J2920; J3370; J3480; J3487; J3489; J7030; J7042; P9612; Q2051; S0164

== ENCOUNTER 2019-05-08 13:53 | Inpatient (IN) ==
--- NOTE | 2019-05-08 14:46 | PROVIDER DOCUMENTATION ---
HPI-General Adult - General Chief Complaint: Altered Mental Status Stated Complaint: AMS Time Seen by Provider: 05/08/19 14:04 Source: family Allergies/Adverse Reactions: Patient Allergies Allergy/AdvReac Type Severity Reaction Status Date / Time tuberculin,PPD,multi-puncture AdvReac Unknown Verified 02/26/19 12:20 Home Medications: Home Medication List Medication Instructions Recorded Confirmed Last Taken Type ATORVAstatin [Lipitor] 20 mg PO DAILY 10/24/14 05/08/19 09/21/15 20:00 History Clopidogrel Bisulfate [Plavix] 75 mg PO DAILY 10/24/14 05/08/19 09/21/15 08:30 History Metoprolol Succinate 50 mg PO BID 10/24/14 05/08/19 09/21/15 History Nitroglycerin Sl [Nitroglycerin] 0.4 mg SL PRN PRN 10/27/14 05/08/19 Unknown History Famotidine [Pepcid] 20 mg PO BID 03/09/15 05/08/19 09/21/15 20:00 History Magnesium Hydroxide [Milk of 30 ml PO DIRECTED 09/21/15 05/08/19 09/18/15 20:30 History Magnesia] Polyethylene Glycol 3350 [Miralax] 17 gm PO DIRECTED 09/21/15 05/08/19 09/19/15 08:30 History Temazepam [Restoril] 15 mg PO QHS 09/21/15 09/21/15 09/21/15 20:30 History Hydrocodone/APAP 5 mg/325 mg 1 ea PO Q4-6H PRN PRN #30 tab 03/02/19 05/08/19 Unknown Rx [[place]-5] Lactulose 15 ml PO BID udc 03/02/19 05/08/19 Unknown Rx - History of Present Illness -Gen Adult Nature of Presenting Problems: [id number] presents to the ER with her son with c/o AMS x 3 days. The son states she is a permanent resident at [facility]. He states that he visits every day. He reports that the last 3 days his mothers mentation has been declining. Today, she was unable to hold a conversation, hold her head up, and was experiencing upper extremity weakness. The nurse assited the pt back to her room and the son states that she went "unresponsive" he states that when EMS arrived she began to rouse a bit. He states that she has a history of a "brain bleed" 3 years ago and also reports she has a large malignant mass to her lung that is not being treated. He reports that she was in the hospital approx 3 months ago and has not been the same since. Location of Pain/Injury: reports: none Onset/Duration: reports: 3 days ago Timing: reports: getting worse Associated Symptoms: reports: dizziness, fatigue, loss of appetite, weakness, other (AMS) Similar Symptoms Previously?: No Recently seen or treated by another doctor?: No Review of Systems - Adult - REVIEW OF SYSTEMS - ADULT Constitutional: reports: see HPI, fatique. denies: chills, fever Eyes: reports: no symptoms reported. denies: decreased vision, blurred vision Ears, Nose, Mouth & Throat: reports: no symptoms reported. denies: epistaxis, throat pain, throat swelling Cardiovascular: reports: see HPI, syncope (unresponsive for approx 5 min). denies: chest pain, palpitations Respiratory: reports: no symptoms reported. denies: wheezing Gastrointestinal: reports: see HPI, poor appetite. denies: abdominal pain, vomiting Genitourinary: reports: see HPI, other (nurses report dark urine). denies: dysuria Musculoskeletal: reports: no symptoms reported Integumentary: reports: no symptoms reported Neurological: reports: see HPI, dizziness/vertigo. denies: numbness, seizure, slurred speech Psychiatric: reports: no symptoms reported Endocrine: reports: no symptoms reported Hematologic/Lymphatic: reports: no symptoms reported Allergic/Immunologic: reports: no symptoms reported All Other Systems: Reviewed and Negative Past History - Adult - PAST MEDICAL HISTORY-ADULT Review of Records: reports: Old Records Reviewed, Nursing Assessment Review, Medications Reviewed, Social history reviewed & non-contributory. Major Childhood Illnesses: reports: denies history Cardiovascular: reports: aortic disease (aneurysm--repaired), CAD, HTN, hyperlipidemia Respiratory: reports: COPD Gastrointestinal: reports: denies history Obstetrical/Gynecological: reports: denies history Genitourinary: reports: denies history Musculoskeletal: reports: denies history Neurological: reports: denies history, other (subdural hematoma) Endocrine/Immune: reports: thyroid disorder Other Conditions: reports: cataract/glaucoma - PRIOR SURGERIES/PROCEDURES Surgical/Procedure History: reports: appendectomy, hysterectomy, other (aortic aneurysm repair, tumor removed from breast, cataract removal) - IMMUNIZATION STATUS Childhood Immunizations: See Nurse Assessment Flu Vaccine: See Nurse Assessment - FAMILY HISTORY Family History: reviewed, not pertinent - SOCIAL HISTORY Smoking: denies Substance Use: none/never Living Situation: care facility Physical Exam-General - PHYSICAL EXAM-ADULT Initial Vital Signs Reviewed: Yes - CONSTITUTIONAL General Appearance: mild distress, cachetic - EYES Eyes: PERRL/EOMI, pink conjunctivae - HEAD, EARS, NOSE, MOUTH & THROAT HENMT: moist mucous membranes - NECK Neck: supple - RESPIRATORY Respiratory: chest non-tender, lungs clear, decreased breath sounds - CARDIOVASCULAR Cardiovascular: normal peripheral pulses, regular rate, rhythm - GASTROINTESTINAL (ABDOMEN) Abdominal Exam: normal bowel sounds, non tender, soft - MUSCULOSKELETAL Peripheral Pulses: radial (R): 2+, radial (L): 2+, dorsalis-pedis (R): 2+, dorsalis-pedis (L): 2+ - SKIN Integumentary: warm/dry, pallor - NEUROLOGIC Neurologic: other (generalized weakness, oriented to person only) - PSYCHIATRIC Psych/Mental Status: normal mood/affect Progress - PLAN OF CARE/RESULTS Progress/Plan/Lab Results: Vital Signs - 8 hr 05/08/19 14:25 Temperature 98.4 F Pulse Rate 97 H Respiratory Rate 18 Blood Pressure 162/99 O2 Sat by Pulse Oximetry 99 Laboratory Results - last 24 hr 05/08/19 14:10 POC Glucose 88 Orders Category Date Time Status CHEST-PORTABLE [RAD] Stat Exams 05/08/19 14:[address] HEAD W/O CONTRAST [CT] Stat Exams 05/08/19 14:35 Ordered CBC WITH DIFF [HEME] Stat Lab 05/08/19 14:35 Uncollected COMPREHENSIVE METABOLIC PANEL [CHEM] Stat Lab 05/08/19 14:35 Uncollected UA NIMS W/REFLEX CULT [URINALYSIS] Stat Lab 05/08/19 14:39 Uncollected Result Diagrams: 05/08/19 14:17 05/08/19 14:17 - REASSESSMENT Reassessment #1 Time Reassessed: 15:18 Status: unchanged - EKG 1 Time of EKG reading by physician:: 14:15 EKG Read and Signed by:: Ad Calderon EKG Interpretation (*Must complete 3 of following elements*): Abnormal Rate: 101 Rhythm: afib - XRAY 1 XRAY Study: Chest Impression: Abnormal ( FINDINGS: Dense infiltrates in the right upper lobe. The patient has a known right upper lobe mass. The left lung is clear except for a nodular density in the lower lung. No cardiomegaly. No pulmonary edema. IMPRESSION: Right upper lobe mass and dense right upper lobe pneumonia), See EMR Report - CT/MRI 1 CT Study: Head Impression: Normal (FINDINGS: Stable diffuse cerebral atrophy. Stable advanced periventricular white matter chronic microvascular disease. No intracranial mass or hemorrhage. The skull is intact. The sinuses, mastoids, and middle ears are clear. IMPRESSION: No acute process.), See EMR Report - CONSULTS/PCP/HOSPITALIST Notification #1 *Consult/PCP/Hospitalist*: Dr Saenz Time Discussed: 16:00 Reason/Comments: Pneumonia, FTT Consult Disposition: Admit Departure - Departure Date of Disposition Decision: 05/08/19 Time of Disposition Decision: 16:02 DIAGNOSIS: FTT (failure to thrive) in adult Pneumonia Qualifiers: Pneumonia type: due to unspecified organism Laterality: right Lung location: u pper lobe of lung Qualified Code(s): J18.1 - Lobar pneumonia, unspecified o rganism Disposition: ADMITTED INPATIENT 09 Certified Medical Emergency: Emergent Condition: Critical - Critical Care Note This patient required my direct & personal management of CC.: Yes Total Time (mins): 45 Critical Care Statement: This patient required my direct personal management to treat or rule out processes, the absence of which, could potentiallly result in sudden, clinically significant life or limb threatening deterioration. Attestation - Physician/ LUCY Attestation Patient care was provided by Advanced Practice Provider:: Yes Advanced Practice Provider:: Kristian Araujo Advanced Practice Provider documentation review:: The Mid-level provider documentation, treatment plan and medical decision making was reviewed by the physician who agrees with all treatment and medical decision making by the [facility]. The physician spent face to face time with patient:: No Advanced Practice Provider documentation review:: Supervising physician onsite and consulted in the evaluation and care of this patient. The physician did not have a face to face encounter with the patient.
--- NOTE | 2019-05-08 14:54 | Diag Imaging Result Doc PS360 ---
EXAM: CHEST-PORTABLE HISTORY: AMS TECHNIQUE: Chest single view COMPARISON: 02/28/2019 FINDINGS: Dense infiltrates in the right upper lobe. The patient has a known right upper lobe mass. The left lung is clear except for a nodular density in the lower lung. No cardiomegaly. No pulmonary edema. IMPRESSION: Right upper lobe mass and dense right upper lobe pneumonia Electronically signed by Pieter Suresh 05/08/2019 2:52 PM
[2019-05-08 15:00] LABS: BASO# 0.01 X1000 (0.0-0.2); BASO% 0.2 % (0.0-0.8); EOS# 0.04 X1000 (0.0-0.7); EOS% 0.6 % (0.0-10.0); HEMATOCRIT 35.7 % (37.0-47.0); HEMOGLOBIN 11.2 g/dL (12.0-16.0); LYMPH# 1.32 X1000 (1.2-3.4); MCH 27.9 PG (27-31); MCHC 31.4 g/dL (33-37); MONO# 0.54 X1000 (0.11-0.59); MONO% 8.6 % (1.7-9.3); MPV 10.1 FL (7.4-10.4); NEUT# 4.38 X1000 (1.4-6.5); NEUT% 69.6 % (42.2-75.2); PLT 232 X1000 (130-400); RBC 4.01 XMIL (4.2-5.4); RDW 14.4 % (11.5-14.5); WBC 6.29 X1000 (4.8-10.8)
--- NOTE | 2019-05-08 15:08 | Diag Imaging Result Doc PS360 ---
CT HEAD W/O CONTRAST - 05/08/2019 INDICATION: AMS COMPARISON: 02/27/2019 FINDINGS: Stable diffuse cerebral atrophy. Stable advanced periventricular white matter chronic microvascular disease. No intracranial mass or hemorrhage. The skull is intact. The sinuses, mastoids, and middle ears are clear. IMPRESSION: No acute process. This exam was performed using automated exposure control, adjustment of mA or kV according to patient size, and/or use of iterative reconstruction technique Electronically signed by Carlos Light 05/08/2019 3:06 PM
[2019-05-08] MEDS ORDERED: NS 1,000 ML IV ONE ×2 (15:20→15:57)
[2019-05-08] MEDS ORDERED: LEVAQUIN 750 MG/D5W 750 MG/150 ML IVPB IV ONE (15:20)
[2019-05-08 15:28] LABS: ALB/GLOB RATIO 1.2; ALBUMIN 3.8 g/dL (3.5-5.0); CALCIUM 13.2 mg/dL (8.8-10.2); CREATININE 1.1 mg/dL (0.5-0.9); POTASSIUM 4.6 mmol/L (3.5-5.1); TOTAL BILIRUBIN 0.42 mg/dL (0.20-1.00); TOTAL PROTEIN 6.9 g/dL (6.3-8.3)
[2019-05-08] MEDS ORDERED: ZOFRAN IV PRN (15:57)
[2019-05-08] MEDS ORDERED: LEVAQUIN 750 MG/D5W 750 MG/150 ML IVPB IV SCH (16:00)
[2019-05-08] MEDS ORDERED: MORPHINE IV PRN (16:01)
[2019-05-08 16:05] LABS: URINE SOURCE CATH
[2019-05-08 16:11] LABS: BILIRUBIN URINE NEGATIVE (NEGATIVE); BLOOD URINE NEGATIVE (NEGATIVE); COLOR YELLOW; GLUCOSE URINE NEGATIVE (NEGATIVE); KETONE URINE NEGATIVE (NEGATIVE); LEUKOCYTES URINE MODERATE (NEGATIVE); NITRITE URINE NEGATIVE (NEGATIVE); PROTEIN URINE TRACE mg/dL (NEGATIVE); SP GRAVITY URINE 1.012; TURBIDITY URINE HAZY (CLEAR); UR EPITHELIAL CELLS <10 /HPF (<10); URINE BACTERIA 4+ /HPF; URINE RBC <10 /HPF (<10); URINE WBC 20-40 /HPF (<10); UROBILINOGEN URINE NORMAL (NORMAL)
--- NOTE | 2019-05-08 16:53 | EKG Report ---
Test Performed on : 05/08/2019 2:15:03 PM Test Reason : ED. No order in [place] Blood Pressure : / mmHG Vent. Rate : 101 BPM Atrial Rate : 094 BPM P-R Int : 000 ms QRS Dur : 082 ms QT Int : 310 ms P-R-T Axes : 000 071 057 degrees QTc Int : 401 ms Atrial fibrillation. with rapid ventricular response. Possible Anterior infarct , age undetermined Abnormal ECG When compared with ECG of 15-MAY-2015 14:44, Atrial fibrillation. has replaced Sinus rhythm. Unconfirmed Result
[2019-05-08] MEDS: ZOSYN 3.375 GM in NS 50 ML IV SCH ×2 (17:32→23:51)
[2019-05-08] MEDS: SOLU-MEDROL IV SCH ×2 (17:32→23:51)
[2019-05-08] MEDS ORDERED: NITROGLYCERIN SL PRN (18:10)
[2019-05-08] MEDS ORDERED: MILK OF MAGNESIA PO SCH (18:15)
--- NOTE | 2019-05-08 18:56 | HISTORY AND PHYSICAL ---
CHIEF COMPLAINT: Altered mental status. HISTORY OF PRESENT ILLNESS: Ms. Lucio is an 83-year-old, white female patient, resident of [facility]. The patient is not doing well in the last 2 to 3 days, increasing cough, chest congestion, weakness. The patient had increasing lethargy. Oral intake was poor. Today, the patient was very drowsy. senior living staff was not able to arouse the patient. The patient was sent to the emergency room. The patient also had weakness in both upper limbs, oral intake was poor. Evaluated by ER physician. Patient was found to have pneumonia in the right upper lung, also urinary tract infection, along with hypercalcemia, and patient was admitted for further care. After proper hydration, patient's clinical condition improved. She became more awake and responsive. The patient is vague and a poor historian. The patient does have cough with scanty sputum production, occasional headache. No runny nose, stuffy nose. Denied any hemoptysis, unquantified weight loss, low-grade fever. The patient does have wheezing, vague abdominal pain. No diarrhea or constipation. No bleeding per rectum. Denied abdominal distention. The patient does have significant odor to her urine. Low back pain. No heat or cold intolerance. At times, polyuria, polydipsia. Generalized weakness. The patient does have a problem with her vision due to macular degeneration. No further history available at this time. ALLERGIES: Patient is allergic to PPD and tuberculin. PAST MEDICAL HISTORY: Significant for COPD, lung mass presumed to be malignancy, postobstructive pneumonia, thyroid nodule, osteoarthritis, gastritis, hypothyroidism, hypertension, coronary artery disease, chronic constipation. The patient has history of gastritis and reflux disease. History of subdural hematoma, aortic aneurysm repair, basal cell skin cancer. PAST SURGICAL HISTORY: Cataract surgery, appendectomy, hysterectomy, bilateral total hip replacements, lumpectomy from the left breast and it was benign. SOCIAL HISTORY: Single, lives in the long term. Needs assistance in activities of daily living. Nonsmoker. The patient used to smoke many years ago. Denied alcohol or substance abuse. Needs assistance in activities of daily living. REVIEW OF SYSTEMS: As per HPI. CURRENT MEDICATIONS: Include the patient is on pain medicine, Lipitor, Plavix, Synthroid, metoprolol, nitroglycerin, Pepcid, Milk of Magnesia, MiraLAX, Gary, lactulose, bronchodilator treatment. FAMILY HISTORY: Noncontributory. REVIEW OF SYSTEMS: As per HPI, otherwise unobtainable. PHYSICAL EXAMINATION: GENERAL: An elderly, white female patient, in mild distress. VITAL SIGNS: Her initial blood pressure 162/92, pulse 97, respiration 18, temperature 98.4 degrees. SKIN: Senile turgor. HEENT: Head atraumatic, normocephalic. Galliano conjunctivae. Anicteric sclerae. Extraocular muscle movement normal. Fundus cannot be penetrated. Good oral hygiene. No tonsillopharyngeal congestion or exudate. Ears and nose benign. NECK: Supple. No JVD, thyromegaly, or lymphadenopathy. CHEST: Bilateral good air entry present. Bibasilar crepitation. No rales. CARDIOVASCULAR: S1 and S2 heard. No gallop or thrill. A 2/6 systolic murmur at the apex. ABDOMEN: Soft, scaphoid. Bowel sounds present. Mild epigastric tenderness. No guarding or rigidity. EXTREMITIES: No cyanosis, clubbing. No acute DVT. CENTRAL NERVOUS SYSTEM: Alert, awake. Answering questions fairly, though patient was not fully oriented to time, place, and person. MUSCULOSKELETAL: Tenderness of lumbosacral spine. Patient was attributing back pain to back injury during transfer with her last admission. LABORATORY AND DIAGNOSTIC DATA: Lab data revealed WBC count 6.29, hemoglobin 11.2, hematocrit 35.7, platelet count 232,000. Electrolytes: BUN 32, creatinine 1.1, calcium 13.2. Urinalysis: 20 to 40 WBC, moderate leukocytes, 4+ bacteria. Her chest x-ray did reveal right upper lobe mass and dense right upper lobe pneumonia. CONSIDERATIONS: 1. Right upper lobe pneumonia. 2. Right upper lobe mass, presumed to be malignancy. 3. Urinary tract infection. 4. Metabolic encephalopathy. 5. Hypercalcemia. 6. Hypertension. 7. Gastritis and reflux disease. 8. Low back pain. 9. Constipation. 10. History of dementia. 11. Weight loss. PLAN: Admit the patient, IV hydration, bronchodilator treatment, IV antibiotics, pain management, IV steroid. Overall plan discussed at length with the patient and son, and they are in agreement. cc: Dean Lozada MD
[2019-05-08] MEDS: DUONEB (A & A) INH SCH ×2 (19:50→23:29)
[2019-05-08] MEDS: LACTULOSE PO SCH (20:31)
[2019-05-08] MEDS: TOPROL XL PO SCH (20:31)
[2019-05-08] MEDS: PROTONIX IV SCH (20:31)
[2019-05-08] MEDS: SODIUM CHLORIDE 0.9% INJ SCH (20:32)
[2019-05-08] MEDS: NS 1,000 ML IV SCH (23:52)
[2019-05-09] MEDS: ZOSYN 3.375 GM in NS 50 ML IV SCH ×4 (05:23→23:37)
--- NOTE | 2019-05-09 06:57 | PROGRESS NOTE ---
DATE: 05/09/2019 SUBJECTIVE: Ms Lucio is doing better. Mild cough, scanty sputum production, some chest soreness when she coughs. Her mental status improved. Tolerating fluid well. Denied abdominal pain. No typical chest pain or palpitations. No diarrhea, blood or mucus in the stool. Patient admitted with altered mental status. Found to have postobstructive pneumonia, UTIs, known case of lung mass, possible lung cancer. OBJECTIVE: Vital signs: Noted. Neck: Supple. No JVD. Lungs: Decreased air entry right upper lung field. Cardiovascular: S1 and S2 heard. Abdomen: Soft, scaphoid. Bowel sounds present. Extremities: No cyanosis, clubbing. No acute DVT. The patient does have superficial pressure sore in the gluteal area. We did wound care nurse evaluation. Central nervous system: Alert, awake, able to move all 4 limbs. LABORATORY DATA: Done yesterday reviewed. CONSIDERATION: 1. Post obstructive pneumonia. 2. Urinary tract infection. 3. Hypercalcemia of malignancy. 4. Low back pain. 5. Hypothyroidism. 6. Chronic obstructive pulmonary disease. PLAN: We will continue antibiotics and close observation. I am going to get Oncology consult for hypercalcemia of malignancy. Continue rest of the treatment, supportive care. Overall plan and prognosis discussed with the son, who was present yesterday. cc: eDan Lozada MD
[2019-05-09] MEDS: DUONEB (A & A) INH SCH ×5 (07:42→23:21)
[2019-05-09] MEDS: LOVENOX SUBQ SCH ×2 (09:46→18:36)
[2019-05-09] MEDS: PLAVIX PO SCH (09:47)
[2019-05-09] MEDS: SOLU-MEDROL IV SCH ×3 (09:47→23:36)
[2019-05-09] MEDS: TOPROL XL PO SCH ×2 (09:47→21:24)
[2019-05-09] MEDS: LACTULOSE PO SCH ×3 (09:48→21:24)
[2019-05-09] MEDS ORDERED: ZOMETA 4 MG in NS 100 ML IV ONE (12:42)
[2019-05-09] MEDS: NS 1,000 ML IV SCH ×2 (13:08→23:37)
[2019-05-09] MEDS: SANTYL OINT TOP SCH (15:45)
[2019-05-09] MEDS: LEVAQUIN 750 MG/D5W 750 MG/150 ML IVPB IV SCH (15:45)
--- NOTE | 2019-05-09 17:28 | HEMO/ONC CONSULTATION ---
DATE: 05/09/2019 REASON FOR CONSULTATION: Hypercalcemia of malignancy. REQUESTING PHYSICIAN: Dr. Lozada. HISTORY OF PRESENT ILLNESS: Ms. Lucio is an 83-year-old female who presented to the emergency department with increased cough, chest congestion, and weakness. She also had some increasing lethargy. The patient has previously been found to have a right upper lobe lung mass that is highly suspicious for malignancy. The family and the patient have decided not to seek any treatment other than conservative treatment. She was here back in February in our office through Dr. Cochran and worked up the patient rather extensively. However, I do not believe any biopsy was actually done on the lung mass. Per the patient's son, she had previously had elevated calcium levels and also per the patient and her son today, they do not wish to seek any sort of treatment for the lung mass and do wish to continue with conservative treatment only. PAST MEDICAL HISTORY: 1. COPD. 2. A lung mass that is presumed to be malignant. 3. Postobstructive pneumonia. 4. Osteoarthritis. 5. Hypothyroidism. 6. Coronary artery disease. 7. GERD. PAST SURGICAL HISTORY: 1. Cataract surgery. 2. Appendectomy. 3. Hysterectomy. 4. Bilateral total hip replacements. 5. Lumpectomy from left breast which was found to be benign. SOCIAL HISTORY: Patient lives in a usp. She does have family that is supportive. She is currently a nonsmoker and denies any alcohol or substance use at this time. REVIEW OF SYSTEMS: As per the HPI. All else is either negative or noncontributory. FAMILY HISTORY: No history of malignancy. PHYSICAL EXAMINATION: Vital Signs: Temperature 98.7 degrees, heart rate 100, respiratory rate 14, blood pressure is 122/75, O2 saturation is 96% on 2 L nasal cannula. General: This is an elderly female lying in hospital bed. Her son is at bedside. She is in no acute distress at this time. HEENT: Head normocephalic, atraumatic. Eyes: Pupils equal, round, and reactive. Ears, Nose, Throat, Mouth: Mucosa appears to be normal. Cardiovascular: S1, S2 heard. No murmurs, gallops, rubs appreciated. Respiratory: Chest is clear. Gastrointestinal: Abdomen is soft. Positive bowel sounds. Musculoskeletal: No bony abnormalities. Skin: No rash. Neurologic: Patient is alert. She does not really answer questions. Rather, her son is answering most of the questions though she does seem engaged in the conversation. LABORATORY AND STUDIES: Calcium is 13.2; corrected is 13.4. Hemoglobin is 11.2. Platelets are 232. Creatinine is 1.1. ASSESSMENT AND PLAN: 1. Hypercalcemia of malignancy. She does have a lung mass. This is suspected to be malignant. She qualifies to receive Zometa, so we will go ahead and give her a dose of Zometa now. Monitor her calcium levels. Continue also adequate hydration. She currently has IV fluids going. 2. Lung mass. Continue conservative treatment per the patient's wishes as well as per family's wishes. 3. Right upper lobe pneumonia. Continue management per Dr. Lozada. The patient is currently on IV antibiotics and bronchodilators. 4. Urinary tract infection. Again, she is currently on IV antibiotics. Continue hydration. 5. Metabolic encephalopathy. Hopefully, she will improve with normalization of her calcium levels. Continue other measures as well. We want to thank you for consulting us on Ms. Lucio. We will continue to follow along and adjust our treatment plan per her hospital course. Dictated by JESSE Padgett for Swati López MD cc: MD Dean Hammonds MD I have seen and examined the patient and the above note reflects my history, exam, assessment and plan. Swati López MD [facility] SYSTEM[facility]
[2019-05-09] MEDS: SODIUM CHLORIDE 0.9% INJ SCH (18:36)
[2019-05-09] MEDS: PROTONIX IV SCH (18:36)
[2019-05-10] MEDS: ZOSYN 3.375 GM in NS 50 ML IV SCH ×3 (05:24→19:43)
[2019-05-10] MEDS ORDERED: NORCO-7.5 PO PRN (06:53)
--- NOTE | 2019-05-10 07:08 | Diag Imaging Result Doc PS360 ---
EXAM: CHEST-1 VIEW 05/10/2019 HISTORY: sob TECHNIQUE: AP portable at 0539 COMMENT: There is a right pleural effusion. There is interstitial opacity with Davida B lines particularly in the right lower lobe. There continues to be alveolar opacity in the lower portion of the right upper lobe. The ill-defined opacity in the right lower lobe has worsened somewhat since 05/08/2019. IMPRESSION: Right upper and lower lobe pneumonia. Right pleural effusion. Electronically signed by Juan Alicea 05/10/2019 7:06 AM
--- NOTE | 2019-05-10 07:09 | PROGRESS NOTE ---
DATE: 05/10/2019 SUBJECTIVE: Ms. Lucio is feeling better. Her chest congestion and cough are improving. No high- grade fever or chills. Denied any nausea or vomiting. Her shortness of breath is less. Oral intake is better. No dysuria or hematuria. OBJECTIVE: Vital Signs: Noted. Neck: Supple. No JVD. Lungs: Decreased air entry, right upper lung field. Occasional wheezing. Cardiovascular: S1 and S2 heard. Abdomen: Soft, nontender. Bowel sounds present. Extremities: No cyanosis, clubbing. No acute DVT. MANAGER MAC: Alert, awake, able to move all 4 limbs. CONSIDERATION: Patient admitted with: 1. Right upper lobe pneumonia. 2. Urinary tract infection due to gram-negative jhon. Identification and sensitivity of the bacteria pending. 3. Lung mass, presumed to be malignancy. 4. Hypercalcemia of malignancy. Appreciate Oncology help. 5. Thyroid nodule. 6. Chronic obstructive pulmonary disease. I am going to change Solu-Medrol to oral prednisone. Continue rest of the treatment. If clinical condition permits, the plan is to discharge the patient back to long-term tomorrow. I am going to follow today's labs and chest x-ray. I discussed the plan with her son, Carmelo, on telephone. cc: Dean Lozada MD
[2019-05-10 07:16] LABS: HEMATOCRIT 30.8 % (37.0-47.0); HEMOGLOBIN 9.5 g/dL (12.0-16.0); MCH 28.5 PG (27-31); MCHC 30.8 g/dL (33-37); MCV 92.5 FL (81-99); MPV 10.5 FL (7.4-10.4); RBC 3.33 XMIL (4.2-5.4); RDW 14.4 % (11.5-14.5); WBC 7.96 X1000 (4.8-10.8)
[2019-05-10] MEDS: DUONEB (A & A) INH SCH ×5 (07:23→23:49)
[2019-05-10 07:32] LABS: ALB/GLOB RATIO 1.2; ALBUMIN 3.2 g/dL (3.5-5.0); CALCIUM 10.9 mg/dL (8.8-10.2); CREATININE 1.2 mg/dL (0.5-0.9); POTASSIUM 4.2 mmol/L (3.5-5.1); TOTAL BILIRUBIN 0.23 mg/dL (0.20-1.00); TOTAL PROTEIN 5.9 g/dL (6.3-8.3)
[2019-05-10] MEDS: TOPROL XL PO SCH ×2 (10:24→20:10)
[2019-05-10] MEDS: PREDNISONE PO SCH (10:24)
[2019-05-10] MEDS: PLAVIX PO SCH (10:24)
[2019-05-10] MEDS: PEPCID PO SCH ×2 (10:24→20:10)
[2019-05-10] MEDS: SANTYL OINT TOP SCH (10:25)
[2019-05-10] MEDS: LACTULOSE PO SCH ×2 (10:32→20:10)
[2019-05-10] MEDS: NS 1,000 ML IV SCH ×3 (11:41→20:17)
[2019-05-10] MEDS ORDERED: LASIX IV ONE (14:19)
[2019-05-10] MEDS: LEVAQUIN 750 MG/D5W 750 MG/150 ML IVPB IV SCH (18:13)
[2019-05-10] MEDS: LOVENOX SUBQ SCH (18:14)
[2019-05-10] MEDS ORDERED: PROTONIX PO SCH (20:00)
[2019-05-11] MEDS: ZOSYN 3.375 GM in NS 50 ML IV SCH ×3 (01:23→12:22)
[2019-05-11] MEDS: NS 1,000 ML IV SCH (05:05)
[2019-05-11] MEDS: DUONEB (A & A) INH SCH ×2 (07:41→11:58)
[2019-05-11] MEDS ORDERED: LASIX IV ONE (08:00)
[2019-05-11] MEDS: PEPCID PO SCH (08:35)
[2019-05-11] MEDS: SANTYL OINT TOP SCH (08:35)
[2019-05-11] MEDS: PLAVIX PO SCH (08:35)
[2019-05-11] MEDS: PREDNISONE PO SCH (08:35)
[2019-05-11] MEDS: TOPROL XL PO SCH (08:35)
[2019-05-11] MEDS: LACTULOSE PO SCH (08:39)
--- NOTE | 2019-05-11 09:48 | DISCHARGE SUMMARY ---
ADMISSION DATE: 05/08/2019 DISCHARGE DATE: FINAL DISCHARGE DIAGNOSES: 1. Post obstructive pneumonia. 2. Urinary tract infection. 3. Metabolic syndrome. 4. Lung mass, presumed to be malignancy. 5. Hypercalcemia of malignancy. 6. Low back pain. 7. Pressure sore in the lower back. 8. Hypothyroidism. 9. Hyperlipidemia. 10. Gastritis and reflux disease. 11. Dementia. HISTORY OF PRESENT ILLNESS: Ms. Lucio, 83-year-old white female patient, resident of [facility], not doing well the last 3 days. Her oral intake was poor. The patient was getting weak and lethargic, had chest congestion, cough, feverish feeling. On the day of admission, patient was very lethargic, unresponsive. The patient was sent to the emergency room, evaluated by ER physician. Patient found to have right upper lobe pneumonia. The patient has right upper lobe lung mass, most likely due to lung cancer. Also found to have UTI and hypercalcemia. The patient was given IV hydration, IV antibiotics. Her clinical condition stabilized and improved and we decided to admit the patient for further care. HOSPITAL COURSE: Patient was treated with IV antibiotics, IV fluids, pain management, pulmonary toilet, symptomatic care. Oncology consult obtained to treat hypercalcemia of malignancy. Overall the patient did well. Her mental status improved. Vital signs improved. Oral intake was good. The patient received maximum benefit of hospitalization and I am going to discharge patient home. The patient had a pressure sore on the back. Wound care nurse evaluated patient and recommendations reviewed. PHYSICAL EXAMINATION: Her vital signs noted. Neck is supple. No JVD. Lungs: Bibasilar crepitations, occasional wheezing. CVS: S1 and S2 heard. Abdomen: Soft, scaphoid. Bowel sounds present. DIETETIC TECHNICIAN: Alert, awake, able to move all 4 limbs. Vague tenderness lumbosacral spine. LAB DATA: On May 10 hemoglobin 9.5, hematocrit 30.8, platelet count 195,000, WBC count 7.96. Electrolytes, her initial calcium was 13.2, repeat calcium was 10.9. ProBNP 7559. Urinalysis did reveal moderate leukocytes, 20 to 40 WBCs and 4+ bacteria. Urine culture grew E. coli, sensitivity results reviewed. ASSESSMENT AND PLAN: Overall patient is doing better. Will discharge patient back to snf on tapering dose of prednisone. I am going to treat her with Augmentin, few days of Bactrim. Encourage oral hydration. Fall precaution. I will follow patient at the snf. I did discussed her presentation with the patient and also her son on telephone. They are in agreement. OVERALL DISCHARGE CONDITION: Satisfactory. Will resume her routine home medications. cc: Dean Lozada MD
[2019-05-11 11:45] VITALS: BP 145/79
--- NOTE | 2019-05-11 13:56 | HEMO/ONC PROGRESS NOTE ---
DATE: 05/11/2019 Ms. Lucio came in with hypercalcemia of malignancy. We have now given her Zometa and her calcium has corrected. The patient and her family have expressed that they do not wish to proceed with any treatment in regards to her lung mass. We will be available as needed while she is in the hospital. No need for outpatient followup. Dictated by JESSE Padgett for Swati Lpóez MD cc: MD Dean Hammonds MD
--- NOTE | 2019-05-30 09:19 | DISCHARGE SUMMARY ---
ADMISSION DATE: 05/08/2019 DISCHARGE DATE: 05/11/2019 ADDENDUM: Ms. Jennifer Lucio did have metabolic encephalopathy due to her underlying electrolyte abnormality and pneumonia. Her pneumonia could be due to gram-negative bacteria. cc: Dean Lozada MD
--- NOTE | 2019-06-01 07:25 | DISCHARGE SUMMARY ---
ADMISSION DATE: 05/08/2019 DISCHARGE DATE: 05/11/2019 ADDENDUM: Considering patient presentation of weight loss and underlying malignancy, patient does qualify or meet criteria for severe malnutrition. cc: Dean Lozada MD
== END 2019-05-11 15:24 | DRG 177 ==
LOC: SUPCPDRO → ED 13:53 → 3N 16:18
PROVIDERS: ADMIT Internal Medicine; ATTEND Internal Medicine